=== PATIENT | female | born 1940 | race Caucasian/White ===

== ENCOUNTER → 2025-01-04 07:44 | Outpatient (REF) | payer OTHER, SELFPAY | LOC: RAD 07:44 | PROVIDERS: ATTENDING PHYSICIAN Student in an Organized Health Care Education/Training Program; FAMILY PHYSICIAN Internal Medicine | DX: R63.4 Abnormal weight loss (principal); R68.81 Early satiety | CPT/HCPCS: 78264; A9541 ==

== ENCOUNTER 2025-01-11 06:13 | Day surgery (SDC) | payer OTHER, SELFPAY ==
[2025-01-11 07:09] VITALS: BMI 16.3
[2025-01-11 07:10] VITALS: BP 179/95
[2025-01-11 09:19] VITALS: BP 153/88
[2025-01-11 09:30] VITALS: BP 137/93
[2025-01-11 09:45] VITALS: BP 160/92
[2025-01-11 09:54] VITALS: BP 123/86
== END 2025-01-11 11:10 | disposition home or self-care (01) ==
LOC: SDS 06:13
PROVIDERS: ATTENDING PHYSICIAN Internal Medicine Gastroenterology
DX: K86.89 Other specified diseases of pancreas (principal); R93.3 Abnormal findings on diagnostic imaging of other parts of digestive tract
CPT/HCPCS: 43237